=== PATIENT | female | born 1985 | race Caucasian/White ===

== ENCOUNTER 2018-05-11 05:05 | Inpatient (IN) ==
[2018-05-11] MEDS ORDERED: ONDANSETRON HCL/PF 2 MG/ML VIAL IV PRN ×2 (08:00→09:37)
[2018-05-11] MEDS ORDERED: RINGER'S SOLUTION,LACTATED 1,000 ML IV ONE (08:00)
[2018-05-11] MEDS ORDERED: OXYTOCIN/DEXTROSE 5%-WATER 30 UNITS/500 ML BAG IV ONE (08:00)
--- NOTE | 2018-05-11 08:13 | HP ---
Chief Complaint - Chief Complaint Date of Service: 05/11/18 Time of Service: 08:05 Chief Complaint: contractions History of Present Illness: 32 yo at 38 4/7wks presents to L&D complaining of contractions of increased intensity. This uncomplicated. Rh Positive Rubella immune GBS negative Medical History (Last Reviewed 05/11/18 @ 08:09 by Adan Shelton DO) Anemia Onset Date: 02/20/18 w/ Currently Onset Date: 10/15/17 [place] teeth extracted Onset Date: ~2005 Surgical History: Surgical History (Last Reviewed 05/11/18 @ 08:09 by Adan Shelton DO) S/P bunionectomy Onset Date: ~2014 Family History: Family History (Last Reviewed 05/11/18 @ 08:09 by Adan Shelton DO) Father Alive and well Mother Crohns disease Brother Idiopathic thrombocytopenia Social History: Preferred Language Lebanese (Last Updated 05/08/18 @ 16:49 by Adan Shelton DO) No Social History Section defined Review Of Systems (GEN) - Review of Systems EENTM: Present: No Symptoms Reported Respiratory: Present: No Symptoms Reported Cardiac: Present: No Symptoms Reported Abdominal: Present: Other - contractions 01/31 Genitourinary: Present: Frequency, Other - vaginal pressure Musculoskeletal: Present: Back Pain Neurological: Present: No Symptoms Reported Skin: Present: No Symptoms Reported Endocrine: Present: No Symptoms Reported Allergies/Adverse Reactions: Allergies Allergy/AdvReac Type Severity Reaction Status Date / Time No Known Drug Allergies Allergy Verified 05/08/18 15:41 No Known Food Allergies Allergy Verified 05/08/18 15:41 Home Medications: HOME MEDICATIONS acetaminophen 500 mg tablet 500 mg PO Q6H PRN 01/03/18 [Last Taken Unknown] vitamin,calcium,ygfxrjvc-jxhv-ongvm acid tablet 1 tab PO DAILY 01/03/18 [Last Taken 05/07/18] Exam - Exam Vital Signs: Vital Signs - Last Taken Temp 36.6 C 05/11/18 05:45 Pulse 64 05/11/18 05:45 Resp 16 05/11/18 05:45 BP 134/83 05/11/18 05:45 Pulse Ox 98 05/11/18 05:45 Constitutional: Present: Alert, Oriented x3, Cooperative ENT Exam: Present: hearing grossly normal Breasts: Present: Exam deferred Respiratory: Present: lungs clear, no respiratory distress Cardiovascular/Chest: Present: regular rate, rhythm Abdomen: Present: soft, other - gravid /Rectal: Present: Other - cervix 4/70/-2 Extremity: Present: no calf tenderness, pedal edema Skin Exam: Present: normal color, warm/dry, no cyanosis Lymphatic: Present: no adenopathy Neurologic: Present: alert, normal mood/affect, oriented x 3 Appearance: Present: appropriate appearance, appropriate insight Eye contact: Present: cooperative, good eye contact, normal speech Thoughts: Present: normal thought pattern Assessment/Plan - Assessment/Plan (1) Labor established Assessment: Routine L&D admission orders. Pitocin and epidural PRN. Problem: Acute
--- NOTE | 2018-05-11 09:30 | ANES ---
Anesthesia Pre Procedure Eval Vitals/Labs: Last Vital Signs Temp 36.8 C 05/11/18 08:27 Pulse 64 05/11/18 08:27 Resp 16 05/11/18 08:27 BP 134/83 05/11/18 08:27 Pulse Ox 98 05/11/18 05:45 HOME MEDICATIONS acetaminophen 500 mg tablet 500 mg PO Q6H PRN 01/03/18 [Last Taken Unknown] vitamin,calcium,xdhficqp-fvdj-yerkl acid tablet 1 tab PO DAILY 01/03/18 [Last Taken 05/07/18] Allergies/Adverse Reactions: Allergies Allergy/AdvReac Type Severity Reaction Status Date / Time No Known Drug Allergies Allergy Verified 05/08/18 15:41 No Known Food Allergies Allergy Verified 05/08/18 15:41 - Planned Procedure Planned Procedure: Labor Epidural Medication List Reviewed:: Yes Allergies Verified: Yes Medical History (Last Reviewed 05/11/18 @ 09:29 by Jefferson Whitten CRNA) Anemia Onset Date: 02/20/18 w/ Currently Onset Date: 10/15/17 [place] teeth extracted Onset Date: ~2005 Surgical History (Last Reviewed 05/11/18 @ 09:29 by Jefferson Whitten CRNA) S/P bunionectomy Onset Date: ~2014 Family History (Last Reviewed 05/11/18 @ 09:29 by Jefferson Whitten CRNA) Father Alive and well Mother Crohns disease Brother Idiopathic thrombocytopenia - Family Anesthesia History Family History:: no untoward family reactions to anesthesia, no familial bleeding tendencies, no family history of clotting disorders, no family history of premature - Cardiovascular Tolerates Activity: Good Heart Sounds: S1 & S2, Regular - Anesthesia Assessment and Plan ASA Class: PS, II Anesthesia Type Plan: Epidural
[2018-05-11] MEDS ORDERED: BUPIVACAINE HCL/PF 30 ML VIAL ONE (09:34)
[2018-05-11] MEDS ORDERED: NALOXONE HCL 1 MG/1 ML SYRG IV PRN (09:37)
[2018-05-11] MEDS ORDERED: BUPIVACAINE HCL/0.9 % NACL/PF 250 ML EP PRN (09:37)
[2018-05-11] MEDS ORDERED: BUPIVACAINE HCL/PF 30 ML VIAL EP SCH (09:45)
--- NOTE | 2018-05-11 09:55 | ANES ---
Anesthesia Procedure Note Procedure Note: ANESTHESIA PROCEDURE NOTE Date of Procedure: 05/11/2018. Time of procedure: 939. Performed by: Jefferson Whitten CRNA Hadoop Analyst: None. Preprocedure diagnosis: Active labor. Post procedure diagnosis: Same. Procedure: Insertion of labor epidural. Indications: The patient is a 32-year-old female in active labor requesting labor epidural for pain management. Findings: See below. Details of the procedure: The patient was placed in a sitting position. DuraPrep as well as Betadine swabs X3 was applied to the patient's back. Patient was then draped in a sterile fashion. Lidocaine 1% was infiltrated to the skin and subcutaneous tissues at the level of the L3-4 interspace. The epidural space was identified using a 18-gauge Tuohy needle with akgw-kr-gqfolwsdsy technique. Epidural catheter was inserted to a depth of 11 centimeters at skin. Negative test dose was elicited using 3 mL of 1.5% preservative-free lidocaine plus epinephrine 1 200,000. The epidural catheter was then taped and secured in place. A loading dose of 8 mL of 0.25% preservative-free bupivacaine was administered to the epidural catheter after negative aspiration for blood and CSF. EBL: Minimal. Fluids: N/A. Specimen: N/A. Post procedure condition: The patient tolerated the procedure well. No complications were noted. Thank you for this consultation. Jefferson Whitten CRNA
--- NOTE | 2018-05-11 09:59 | ANES ---
Post Anesthesia Assessment - Vital Signs Vitals: Last Vital Signs Temp 36.9 C 05/11/18 09:56 Pulse 76 05/11/18 09:56 Resp 18 05/11/18 09:56 BP 119/75 05/11/18 09:56 Pulse Ox 99 05/11/18 09:56 Airway Patency: Normal - Mental Status Level Of Consciousness: Awake - Pain Level Pain Score: 0 - N/V Assessment Nausea/Vomiting Presence: None Dehydration:: No
[2018-05-11] MEDS: DEXTROSE 5%-LACTATED RINGERS 1,000 ML IV PRN ×2 (10:00→15:24)
--- NOTE | 2018-05-11 16:01 | PN ---
Progess Note - Interim Date: 05/11/18 Time: 15:59 Narrative: 05/11/18 15:59 Patient comfortable with epidural Vital signs stable. Pitocin at 9 mu/min. FHT: 130 baseline, reassuring contractions q 1-3 min Cervix: 5/70/-2, AROM at 1530-clear Impression: Intrauterine at 38 4/7 weeks protracted cervical dilation Plan: If no change in the next hour and a half after AROM will place IUPC
--- NOTE | 2018-05-11 16:44 | PN ---
Progess Note - Interim Date: 05/11/18 Time: 16:40 Narrative: 05/11/18 16:40 Patient feeling lots of pain on the suprapubic/left side Vital signs stable. Pitocin at 8 mu/min. FHT: 130 baseline, reassuring contractions q 2-3 min Cervix: 5/70/-2 Impression: Intrauterine at 38 4/7 weeks with protracted labor Plan: IUPC placed. Anesthesia consulted to kezia holland.
[2018-05-11] MEDS ORDERED: OXYTOCIN 20 UNITS in RINGER'S SOLUTION,LACTATED 1,000 ML IV ONE (21:41)
[2018-05-11] MEDS ORDERED: RINGER'S SOLUTION,LACTATED 1,000 ML IV PRN (21:41)
[2018-05-11] MEDS ORDERED: ceFAZolin SODIUM/DEXTROSE,ISO 2 GM/50 ML BAG IV ONE (21:41)
--- NOTE | 2018-05-11 21:51 | PN ---
Progess Note - Interim Date: 05/11/18 Time: 21:43 Narrative: 05/11/18 21:44 Patient having difficulty getting control of pain with epidural Vital signs stable. Pitocin at 9 mu/min. FHT: 140 baseline, [reassuring] Contractions q [2-3] min Cervix: Complete/+1, no descent with over 2 hours of pushing, large caput forming Impression: Intrauterine at 38-4/7 weeks, arrest of descent. Patient refusing further questioning, desires section. Plan: Risk/benefits/alternatives discussed with patient and spouse. In light of patient's labor course and clinical assessment of the baby's size, I agree with proceeding with primary low transverse section.
--- NOTE | 2018-05-11 22:21 | ANES ---
Anesthesia Pre Procedure Eval Vitals/Labs: Last Vital Signs Temp 36.9 C 05/11/18 09:56 Pulse 76 05/11/18 09:56 Resp 18 05/11/18 09:56 BP 119/75 05/11/18 09:56 Pulse Ox 99 05/11/18 09:56 HOME MEDICATIONS acetaminophen 500 mg tablet 500 mg PO Q6H PRN 01/03/18 [Last Taken Unknown] vitamin,calcium,iwmbsftc-wtzk-btkqb acid tablet 1 tab PO DAILY 01/03/18 [Last Taken 05/07/18] Allergies/Adverse Reactions: Allergies Allergy/AdvReac Type Severity Reaction Status Date / Time No Known Drug Allergies Allergy Verified 05/08/18 15:41 No Known Food Allergies Allergy Verified 05/08/18 15:41 - Planned Procedure Planned Procedure: C/S Medication List Reviewed:: Yes Allergies Verified: Yes Medical History (Last Reviewed 05/11/18 @ 22:20 by Jefferson Whitten CRNA) Anemia Onset Date: 02/20/18 w/ Currently Onset Date: 10/15/17 [place] teeth extracted Onset Date: ~2005 Surgical History (Last Reviewed 05/11/18 @ 22:20 by Jefferson Whitten CRNA) S/P bunionectomy Onset Date: ~2014 Family History (Last Reviewed 05/11/18 @ 22:20 by Jefferson Whitten CRNA) Father Alive and well Mother Crohns disease Brother Idiopathic thrombocytopenia - Family Anesthesia History Family History:: no untoward family reactions to anesthesia, no familial bleeding tendencies, no family history of clotting disorders, no family history of premature - Airway/Neck/Teeth Within Normal Limits:: Yes Teeth Condition: Intact Mallampatti Score: 2 Thyromental (T-M) distance: > 6 cm Mandibulo Hyoid distance: > 3 cm - Respiratory Respiratory: lungs clear Smoking Status: Never smoker Discussed smoking cessation including day of surgery: No Sleep Apnea currently treated: No Sleep Apnea by current assessment: No Discussed Risks/Treatment of OSCAR: No - Cardiovascular Tolerates Activity: Good Heart Sounds: S1 & S2, Regular - Anesthesia Assessment and Plan ASA Class: PS, II, E Anesthesia Type Plan: Block - Bilateral ultrasound guided TAP block for postop analgesia, Spinal
--- NOTE | 2018-05-11 23:57 | ANES ---
Post Anesthesia Discharge - Transfer of Care Transfer of Care handoff given to nurse: Yes - Discharge from PACU Discharge from PACU when meets criteria: Yes - Discharge to ASU Discharge to ASU-no complications/pt stable: Yes
--- NOTE | 2018-05-12 | ANES ---
Anesthesia Procedure Note Procedure Note: ANESTHESIA PROCEDURE NOTE Date of Procedure: 05/11/2018. Time of procedure: 2350. Performed by: Jefferson Whitten CRNA Brake Adjuster: None. Preprocedure diagnosis: . Post procedure diagnosis: Same. Procedure: Bilateral ultrasound-guided transversus abdominus plane block for postop analgesia. Indications: The patient is a 32 -year-old female post section. Findings: See below. Details of the procedure: ChloraPrep was used on the patient's abdomen and the procedure was performed under sterile technique. The right abdominal fascial layer between the internal oblique muscle and the transversus abdominus muscles was identified under ultrasound guidance. A 21-gauge 4 inch block needle was inserted under ultrasound guidance to the target fascial plane. 15 mL's of 0.5% bupivacaine plus epinephrine 1:200,000 was injected after negative aspiration for blood. The needle was removed intact and the procedure was then repeated at the left side. No complications were noted. The images were retained in the hospital medical database . EBL: Minimal. Fluids: N/A. Specimen: N/A. Post procedure condition: The patient tolerated the procedure well. No complications were noted. Thank you for this consultation. Jefferson Whitten CRNA
--- NOTE | 2018-05-12 00:02 | OR ---
Operative Report - Dictated Report Narrative: Pre Operative Diagnosis: 38 4/7-week intrauterine , arrest of descent Post Operative Diagnosis: Same. Procedure Preformed: Primary Low Transverse Section Surgeon: Salvador Shelton DO [employer]oples[employer] Consultant: OR staff Anesthesia: Spinal, TAP block Estimated Blood Loss: 400 mL Urine Output: 250 mL of clear urine Fluids Given: 1000 mL of crystalloid Drains: [place] to gravity Surgical Complications: None Specimens: Placenta pathology Findings: Male in cephalic presentation born at 2252 on 05/11/2016 with Apgars 5 and 9, weighing 3830 g. Normal uterus, tubes, ovaries. Cord gases: Arterial: 6.935/100/x/20.8/-14.5 Venous: 6.971/102.2/x/23.0/-12.2 (05/12/18 00:17 and 00:19) Indication: 32-year-old 1 para 0 whose spontaneous labor was complicated by protracted dilation and arrest of dilation. She progressed to complete dilation but was unable to push the baby below +1 station. Technique: The patient was taken to the operating room and placed in dorsal supine position with a left lateral tilt. After adequate spinal anesthesia, f oley catheter insertion,SCDs placed, and 2 g of Ancef given preoperatively, the abdominal cavity was entered via a modified Benitez-Hope incision. Two rolled laps were placed in the pericolic gutters on either side of the uterus. A transverse incision was made in the lower uterine segment and extended laterally and upwardly with digital traction. Clear fluid was noted upon amniotomy. The infant was delivered easily. The cord was clamped and cut and was handed off to awaiting paper cap machine operator. The placenta was allowed to deliver spontaneously. The uterus was cleared of clot and debris. Uterine incision was closed with 0 Vicryl using a running locked stitch. A second imbricating layer was placed. Excellent hemostasis was noted. Rolled laps were removed from the abdominal cavitiy. Cord gases were obtained. The peritoneum was closed with a running 3- 0 Monocryl. The same suture was used to approximate the rectus and pyramidalis muscles. The fascia was closed with a running 0 Vicryl. The subcutaneous layer was closed with a running 3-0 Monocryl. The same suture was used to approximate the subdermal layer. The skin was closed with a running 4-0 Monocryl and Dermabond. Sponge, lap, needle, and instrument count were correct x 2. Disposition: The patient was transferred to post anesthesia care unit in good condition
--- NOTE | 2018-05-12 00:11 | ANES ---
Post Anesthesia Assessment - Vital Signs Vitals: Last Vital Signs Temp 37.1 C 05/11/18 23:59 Pulse 84 05/11/18 23:59 Resp 18 05/11/18 23:59 BP 99/46 05/11/18 23:59 Pulse Ox 99 05/11/18 23:59 Airway Patency: Normal - Mental Status Level Of Consciousness: Awake - Pain Level Pain Score: 0 - N/V Assessment Nausea/Vomiting Presence: None Dehydration:: No
[2018-05-12] MEDS ORDERED: GLYCERIN/WITCH HAZEL LEAF 40 APPL BOX TP PRN (00:32)
[2018-05-12] MEDS ORDERED: SENNOSIDES 8.6 MG TABLET PO PRN (00:32)
[2018-05-12] MEDS ORDERED: SIMETHICONE 80 MG TAB.CHEW PO PRN (00:32)
[2018-05-12] MEDS ORDERED: BISACODYL 10 MG SUPP.RECT RC PRN (00:32)
[2018-05-12] MEDS ORDERED: ONDANSETRON HCL/PF 2 MG/ML VIAL IV PRN ×2 (00:32)
[2018-05-12] MEDS: oxyCODONE HCL/ACETAMINOPHEN 1 TAB TABLET PO PRN ×7 (00:49→14:44)
[2018-05-12] MEDS: IBUPROFEN 800 MG TABLET PO PRN ×4 (00:49→22:56)
[2018-05-12] MEDS: ENOXAPARIN SODIUM 40 MG/0.4 ML SYRG SC SCH (07:13)
[2018-05-12] MEDS: DOCUSATE SODIUM 100 MG CAPSULE PO SCH ×2 (08:59→22:55)
[2018-05-12] MEDS ORDERED: METOCLOPRAMIDE HCL 10 MG TABLET PO PRN (16:50)
--- NOTE | 2018-05-12 17:16 | PN ---
Subjective - Date and Time Seen Date: 05/12/18 Time: 17:15 Objective - Vitals Vitals: Last Vital Signs Temp 36.5 C 05/12/18 14:00 Pulse 70 05/12/18 14:00 Resp 18 05/12/18 14:00 BP 122/69 05/12/18 14:00 Pulse Ox 100 05/12/18 14:00 Pain increased this afternoon after doing too much. Some nausea and vomiting from Percocet. Lochia wnl. Abdomen - soft, appropriately tender Incision -clean, dry, intact uterus - firm, at umbilicus -1 no calf tenderness Impression: Post op day #1 s/p primary section. Nausea and vomiting due to Percocet Plan: Continue routine post-operative/ care. Advised patient to decrease activity, use narcotic pain medication sparingly, Reglan added to anti- nausea regimen. Assessment/Plan - Problems/Diagnosis (1) Labor established Problem: Acute
[2018-05-13] MEDS: IBUPROFEN 800 MG TABLET PO PRN ×3 (04:56→18:00)
--- NOTE | 2018-05-13 05:56 | PATH ---
PHYSICIAN:Adan Shelton DO LAB #:[id number] SPECIMEN DATE:05/12/2018 SPECIMEN:Placenta. CLINICAL INFORMATION:The patient is a 32-year-old woman who presented at 38-4/7th weeks IUP with arrest of descent in labor. Anal vaginal smear 2017 negative for group B strep. The patient underwent . Operative Findings: Patient delivered a 3830 g boy Apgars scores 5 and 9. Normal uterus tubes and ovaries. GROSS DESCRIPTION:The specimen is received in a formalin-filled container appropriately designated "placenta." Specimen consists of a 450 gram 19.1 x 17.1 x 2.0 cm placenta with a 20 cm velamentously eccentrically inserted (5 cm velamentous insertion) 1.1 cm umbilical cord. There is a separate 8 x 1.1 cm umbilical cord in the container. The surface is slate figueroa and unremarkable. Maternal cotyledons are intact. There is an accessory 4.1 x 3.0 x 1.1 cm accessory lobe. Cross sections show beefy red parenchyma with no focal lesions. membranes are slightly opacified. Summary of cassettes: 1= Umbilical cord of velamentous insertion; 2 = Umbilical cord; 3 and 4 = Center of placenta; 4 = Margin of placental full-thickness; 6= accessory lobe; 7= membranes. DIAGNOSIS: INTRAUTERINE CONTENTS, PRIMARY SECTION: THIRD TRIMESTER TRI-VASCULAR UMBILICAL CORD 450 GRAM PLACENTA SHOWING: -ACCESSORY LOBE -NO ADDITIONAL PATHOLOGIC FINDINGS COMMENT: No evidence of chorioamnionitis, villitis or infarction
[2018-05-13] MEDS: ENOXAPARIN SODIUM 40 MG/0.4 ML SYRG SC SCH (09:22)
[2018-05-13] MEDS: DOCUSATE SODIUM 100 MG CAPSULE PO SCH ×2 (09:22→22:15)
--- NOTE | 2018-05-13 13:21 | PN ---
Subjective - Date and Time Seen Date: 05/13/18 Time: 13:20 Objective - Vitals Vitals: Last Vital Signs Temp 36.5 C 05/13/18 09:00 Pulse 96 05/13/18 09:00 Resp 18 05/13/18 09:00 BP 115/77 05/13/18 09:00 Pulse Ox 98 05/13/18 09:00 Pain improving much since yesterday after stopping Percocets. Ambulating well. Tolerating regular diet. Pain well controlled. Lochia wnl. Abdomen - soft, appropriately tender Incision - clean, dry, intact Uterus - firm, at umbilicus -2 No calf tenderness Impression: Post op day #2 s/p primary section. Plan: Continue routine post-operative/ care Assessment/Plan - Problems/Diagnosis (1) Labor established Problem: Acute
[2018-05-14] MEDS: IBUPROFEN 800 MG TABLET PO PRN ×2 (03:04→09:11)
[2018-05-14] MEDS: ENOXAPARIN SODIUM 40 MG/0.4 ML SYRG SC SCH (07:10)
[2018-05-14] MEDS: DOCUSATE SODIUM 100 MG CAPSULE PO SCH ×2 (07:13→10:36)
--- NOTE | 2018-05-14 07:26 | PN ---
Subjective - Date and Time Seen Date: 05/14/18 Time: 07:25 Objective - Vitals Vitals: Last Vital Signs Temp 36.6 C 05/14/18 00:55 Pulse 70 05/14/18 00:55 Resp 18 05/14/18 00:55 BP 112/60 05/14/18 00:55 Pulse Ox 98 05/14/18 00:55 Patient denies complaints. Ambulating without difficulty. Tolerating regular diet. Pain well controlled. Lochia wnl. Abdomen - soft, appropriately tender Incision - clean, dry, intact Uterus - firm, at umbilicus -3 No calf tenderness Impression: Post op day #3 s/p primary section. Plan: Routine discharge instructions Assessment/Plan - Problems/Diagnosis (1) Labor established Problem: Acute
[2018-05-14 07:35] VITALS: BP 120/68
== END 2018-05-14 12:45 | disposition home or self-care (01) | DRG 788 ==
LOC: OBCLINIC 05:05 → OB 07:48
PROVIDERS: ADMIT Obstetrics & Gynecology; ATTEND Obstetrics & Gynecology
CPT/HCPCS: 59025; 88307; J2405

== ENCOUNTER 2020-05-04 05:06 | Inpatient (IN) ==
[2020-05-04] MEDS: RINGER'S SOLUTION,LACTATED 1,000 ML IV PRN ×3 (05:10→08:30)
[2020-05-04] MEDS ORDERED: Oxytocin/Ringers Lactate 20 UNITS/1,000 ML BAG IV ONE (05:10)
--- NOTE | 2020-05-04 07:10 | ANES ---
Anesthesia Pre Procedure Eval Vitals/Labs: Last Vital Signs Temp 36.6 C 05/04/20 06:00 Pulse 84 05/04/20 06:00 Resp 18 05/04/20 06:00 BP 143/74 H 05/04/20 06:00 Pulse Ox 99 05/04/20 06:00 HOME MEDICATIONS prenat.vits,funmilayo,jou-phcd-wbort 1 tab PO DAILY 10/01/19 [Last Taken Unknown] ferrous sulfate 325 mg (65 mg iron) tablet 325 mg PO DAILY #30 tab 10/05/19 [Last Taken Unknown] Allergies/Adverse Reactions: Allergies Allergy/AdvReac Type Severity Reaction Status Date / Time No Known Drug Allergies Allergy Verified 05/04/20 05:11 - Planned Procedure Planned Procedure: Medication List Reviewed:: Yes Allergies Verified: Yes Medical History (Last Reviewed 05/04/20 @ 07:09 by Kenneth Finley CRNA) Anemia Onset Date: 02/20/18 w/ Surgical History (Last Reviewed 05/04/20 @ 07:09 by Kenneth Finley CRNA) History of primary section Onset Date: 05/11/18 arrest of descent S/P bunionectomy Onset Date: ~2014 [place] teeth extracted Onset Date: ~2005 Family History (Last Reviewed 05/04/20 @ 07:09 by Kenneth Finley CRNA) Father Alive and well Mother Crohns disease Brother Alive and well 2 brothers Grandfather Cancer kyfqkppl-xehddnxa-xh age 50's - Family Anesthesia History Family History:: no untoward family reactions to anesthesia - Airway/Neck/Teeth Within Normal Limits:: Yes Teeth Condition: intact Neck Exam: full range of motion Mallampatti Score: 2 Thyromental (T-M) distance: > 6 cm Mandibulo Hyoid distance: > 3 cm - Respiratory Respiratory Physical: lungs clear Smoking Status: Never smoker Sleep Apnea currently treated: No Sleep Apnea by current assessment: No - Cardiovascular Tolerate Activity: Good Heart Sounds: S1 & S2, Regular - Gastrointestinal NPO since: [place] - Anesthesia Assessment and Plan ASA Class: PS, II Anesthesia Type Plan: Spinal - bilat TAP block
[2020-05-04] MEDS ORDERED: BUPIVACAINE HCL/EPINEPHRINE 50 ML VIAL IJ ONE (07:12)
[2020-05-04] MEDS ORDERED: ceFAZolin SODIUM 1 GM VIAL ONE (07:13)
[2020-05-04] MEDS ORDERED: NORMAL SALINE 20 ML VIAL ONE (07:13)
[2020-05-04] MEDS ORDERED: ONDANSETRON HCL/PF 2 MG/ML VIAL ONE (07:13)
[2020-05-04] MEDS ORDERED: EPINEPHrine 1 MG/ML AMPUL ONE (07:20)
[2020-05-04] MEDS ORDERED: fentaNYL CITRATE/PF 50 MCG/ML AMPUL ONE (08:04)
[2020-05-04] MEDS ORDERED: DEXAMETHASONE SODIUM PHOSP/PF 10 MG/ML VIAL ONE (08:30)
[2020-05-04] MEDS ORDERED: METOCLOPRAMIDE HCL 5 MG/ML VIAL ONE (08:30)
[2020-05-04] MEDS ORDERED: SIMETHICONE 80 MG TAB.CHEW PO PRN (09:04)
[2020-05-04] MEDS ORDERED: SENNOSIDES 8.6 MG TABLET PO PRN (09:04)
[2020-05-04] MEDS ORDERED: ONDANSETRON HCL/PF 2 MG/ML VIAL IV PRN (09:04)
[2020-05-04] MEDS ORDERED: BISACODYL 10 MG SUPP.RECT RC PRN (09:04)
[2020-05-04] MEDS ORDERED: oxyCODONE HCL/ACETAMINOPHEN 1 TAB TABLET PO PRN (09:04)
--- NOTE | 2020-05-04 09:16 | OR ---
Operative Report - Dictated Report Narrative: Indication: 34-year-old 2 para 1 at 39-3/7 weeks presents for repeat low transverse section due to prior section. status: Planned Pre Operative Diagnosis: 39-3/7-week intrauterine . Prior section. Post Operative Diagnosis: Same. Procedure: Repeat low transverse section. Surgeon: Salvador Shelton DO Lead Burner Apprentice: OR Staff Anesthesia: Spinal, TAP block Estimated Blood Loss: 450 mL Urine Output: 500 mL clear urine Fluids Replacement: 1800 mL of crystalloid Drains: Eric to gravity Surgical Complications: 5 mm superficial scratch on left cheek of the baby occurred during hysterotomy. Specimens: Placenta to freezer Findings: Female born at 0755 on 05/04/2018 with Apgars 8 and 9, weighing 3112 g in OP presentation. Normal uterus, tubes, ovaries Technique: The patient was taken to the operating room and placed in dorsal supine position with a left lateral tilt. After adequate spinal anesthesia, eric catheter inserted, SCDs placed, and 2 g of Ancef given preoperatively, the abdominal cavity was entered using sharp and blunt dissection. Two rolled laps were placed in the pericolic gutters on either side of the uterus. The baby's facial features were easily palpated through the lower uterine segment. Because of the OP presentation and lack of fluid between the uterine wall and baby's face, the hysterotomy in the lower uterine segment was carefully made layer by layer. Despite this, a superficial scratch was noted on the baby's face at the time of delivery. The incision was extended laterally and upwardly with digital traction. Clear fluid was noted upon amniotomy. The infant was delivered easily. After approximately 30 seconds, the cord was clamped and cut and infant was handed off to awaiting pediatric team. The placenta was allowed to deliver spontaneously. The uterus was cleared of clot and debris. Uterine incision was closed with 0 Vicryl using a running stitch. A second imbricating layer was placed. Excellent hemostasis was noted. The rolled laps were removed from the abdominal cavitiy. The peritoneum was closed with a running 3-0 Monocryl. The same suture was used to approximate the rectus and pyramidalis muscles. The fascia was closed with a running 0 Vicryl. The subcutaneous layer was closed with a running 3-0 Monocryl. The same suture was used to approximate the subdermal layer. The skin was closed with a running 4-0 Monocryl and Dermabond. 2 single interrupted sutures of 4-0 Monocryl were placed in the incision for better approximation of the superficial layer. Sponge, lap, needle, and instrument count were correct x 2. Disposition: To post anesthesia care unit in good condition
[2020-05-04] MEDS: KETOROLAC TROMETHAMINE 30 MG/ML VIAL IV PRN ×3 (09:45→21:57)
[2020-05-04] MEDS: POLYETHYLENE GLYCOL 3350 17 GM PACKET PO SCH (12:06)
[2020-05-04] MEDS: DOCUSATE SODIUM 100 MG CAPSULE PO SCH ×2 (12:06→20:00)
[2020-05-04] MEDS: ACETAMINOPHEN 325 MG TABLET PO PRN ×2 (12:42→18:24)
--- NOTE | 2020-05-04 15:00 | ANES ---
Post Anesthesia Discharge - Transfer of Care Transfer of Care handoff given to nurse: Yes - Discharge from PACU Discharge from PACU when meets criteria: Yes
--- NOTE | 2020-05-04 15:00 | ANES ---
Post Anesthesia Assessment - Vital Signs Vitals: Last Vital Signs Temp 36.9 C 05/04/20 14:10 Pulse 71 05/04/20 14:10 Resp 16 05/04/20 14:10 BP 132/60 05/04/20 14:10 Pulse Ox 96 05/04/20 14:10 Airway Patency: Normal - Mental Status Level Of Consciousness: Awake - Pain Level Pain Score: 6 - N/V Assessment Nausea/Vomiting Presence: None Dehydration:: No
--- NOTE | 2020-05-04 15:02 | ANES ---
Anesthesia Procedure Note Procedure Note: ANESTHESIA PROCEDURE NOTE Date of procedure: 05/04/2020. Time of procedure: 40. Performed by: Carrillo Finley CRNA Chemical Tester: Paula Toro RN . Preprocedure diagnosis: Previous . Post procedure diagnosis: Same. Procedure: Ultrasound-guided bilateral tap block Indications: Postoperative analgesia. Findings: Patient was placed in a supine position in the PACU. Patient's right abdominal wall was prepped with ChloraPrep. Ultrasound utilized to identify the fascial layer between the internal oblique and transabdominus muscles. 4 inch 20-gauge regional block needle was advanced under ultrasound guidance till tip of needle was placed just distally to fascial layer. 20 mL of 0.25% Marcaine with epinephrine 1-200,000 was injected with adequate spread of local anesthesia noted. Procedure was then repeated on patient's left side. EBL: Minimal. Fluids: N/A. Specimen: N/A. Post procedure condition: The patient tolerated the procedure well. No complications were noted. Thank you for this consultation Carrillo Finley CRNA
[2020-05-04] MEDS: ENOXAPARIN SODIUM 40 MG/0.4 ML SYRG SC SCH (20:00)
[2020-05-05] MEDS: ACETAMINOPHEN 325 MG TABLET PO PRN ×3 (02:37→18:36)
[2020-05-05] MEDS: KETOROLAC TROMETHAMINE 30 MG/ML VIAL IV PRN (03:59)
[2020-05-05] MEDS ORDERED: ceFAZolin SODIUM 1 GM VIAL IV PRN (06:00)
--- NOTE | 2020-05-05 08:56 | PN ---
Subjective - Date and Time Seen Date: 05/05/20 Time: 08:56 Objective - Vitals Vitals: Last Vital Signs Temp 36.9 C 05/05/20 07:50 Pulse 78 05/05/20 07:50 Resp 16 05/05/20 07:50 BP 134/79 05/05/20 07:50 Pulse Ox 98 05/05/20 07:50 Patient denies complaints. Tolerating regular diet. Ambulating without difficulty. Pain well controlled. Breast-feeding/pumping. Lochia wnl. Abdomen - soft, appropriately tender Incision -clean, dry, intact uterus - firm, at umbilicus -1 No calf tenderness Impression: Post op day #1 s/p repeat section. Plan: Continue routine post-operative/ care Cauti Physician Documentation - Urinary Catheter Management Urethral ([place]) Date of Insertion: 05/04/20 Time of Insertion: 07:40 Date of Removal: 05/04/20 Time of Removal: 20:19
[2020-05-05] MEDS: POLYETHYLENE GLYCOL 3350 17 GM PACKET PO SCH (08:59)
[2020-05-05] MEDS: DOCUSATE SODIUM 100 MG CAPSULE PO SCH ×2 (08:59→20:09)
[2020-05-05] MEDS: IBUPROFEN 800 MG TABLET PO PRN ×2 (11:01→17:13)
[2020-05-05] MEDS: ENOXAPARIN SODIUM 40 MG/0.4 ML SYRG SC SCH (20:08)
[2020-05-06] MEDS: IBUPROFEN 800 MG TABLET PO PRN ×2 (00:21→07:08)
[2020-05-06] MEDS: ACETAMINOPHEN 325 MG TABLET PO PRN (03:39)
[2020-05-06 08:17] VITALS: BP 124/85
[2020-05-06] MEDS: POLYETHYLENE GLYCOL 3350 17 GM PACKET PO SCH (09:28)
[2020-05-06] MEDS: DOCUSATE SODIUM 100 MG CAPSULE PO SCH (09:28)
--- NOTE | 2020-05-06 11:04 | PN ---
Subjective - Date and Time Seen Date: 05/06/20 Time: 11:01 Objective - Vitals Vitals: Last Vital Signs Temp 36.8 C 05/06/20 07:30 Pulse 64 05/06/20 07:30 Resp 16 05/06/20 07:30 BP 124/85 05/06/20 07:30 Pulse Ox 99 05/06/20 07:30 Patient denies complaints. Ambulating well. Tolerating regular diet. Pain well controlled. Breast-feeding well Lochia wnl. Abdomen - soft, appropriately tender Incision -clean, dry, intact uterus - firm, at umbilicus -2 No calf tenderness Impression: Post op day #2 s/p repeat section. Plan: Continue routine post-operative/ care Cauti Physician Documentation - Urinary Catheter Management Urethral ([place]) Date of Insertion: 05/04/20 Time of Insertion: 07:40 Date of Removal: 05/04/20 Time of Removal: 20:19
--- NOTE | 2020-05-06 11:13 | DS ---
OB Discharge Summary Delivery Date: 05/04/20 Delivery Time: 07:55 :: 2 Para:: 2 Gestational weeks:: 39 Gestational days:: 3 Intrapartum Procedures: Delivered, Secondary Section, Anesthesia - Spinal Procedures: None /OP Complications: No Complications Discharge Diagnosis: Term -Delivered - Discharge Information Date of Discharge: 05/06/20 Hospital Course: 34-year-old 2 para 1 admitted at 39-3/7 weeks for repeat low transverse section which went uneventfully. course was uncomplicated. Discharge Location: Home Disposition: Home self-care Condition: Good Referrals: Adan Shelton DO [Primary Care Provider] - Activity on Discharge:: Activity as tolerated, Pelvic Rest, No lifting Discharge Diet: General/regular food Additional Patient Instructions (free text): Gabe your follow up appointment is scheduled for SaturdayMay 23 @ 9:[address] Shelton. Karrie's follow up appointment is scheduled for SaturdayMay 09 @ 9:15 a.[address] arrival time with Dr. Shin. Her blood type is O- Discharge weight Discharge bilirubin Continue to breastfeed/bottlefeed pumped milk at least every 2-[address] her on her back to sleep in her own bassinet or crib. No loose blankets, bumper pads, stuffed animals or pillows. Thank you for choosing [facility]. If you have any questions or concerns, please don't hesitate to call us at [phone]. Complete Home Medications List: Complete Home Medication List: prenat.vits,funmilayo,[id number]-[id number] 1 tab PO DAILY 10/01/19 ferrous sulfate 325 mg (65 mg iron) tablet 325 mg PO DAILY #30 tab 10/05/19 Ibuprofen [Motrin] 200 - 800 mg PO Q6H PRN #100 tab 05/06/20 - Plan Discharge to:: Home Follow up in office in:: 2 weeks - Information Weight (Grams): 3,112 Infant Sex: Female Score 1 min: 8 Score 5 min: 9 Circumcision: Not Applicable Complications: None Other Complications: <1 cm superficial laceration to left cheek
== END 2020-05-06 14:00 | disposition home or self-care (01) | DRG 788 ==
LOC: OB 05:06
PROVIDERS: ADMIT Obstetrics & Gynecology; ATTEND Obstetrics & Gynecology